=== PATIENT | male | born 1955 | race Caucasian/White ===

== ENCOUNTER → 2016-05-20 | Outpatient (CLI) | payer BC, OTHER ==
[~2016-05-20] VITALS: Ht 177.8 cm; Wt 113.4 kg
[~2016-05-20] MED LIST: ACET-700; ASPI1TAB PO; ASPI325T PO; ATOR40TA PO; CETI10TA PO; DIGI1TAB3 PO; DIGO0.2556 IV; ELIQ5TAB PO; FLEC1TAB PO; GLIP10TA6 PO; GLIP5TAB8 PO; INVO300T PO; JANU50TA25 PO; LIDOCAINE 2% INJ 100 MG/5 ML SDV (FOR ANES.) As Ordered ONE; LISI-538 PO; METF500T PO; NS 1,000 ML IV SCH; OMEP10CASR PO; PROPOFOL 500 MG/50 ML VIAL As Ordered ONE; TAMBOCAR PO; TENO1TAB4 PO; TYLE167L PO
--- NOTE | 2016-05-20 11:32 | ROOR ---
Patient Name: Kelby Waldrop Procedure Date: 05/20/2016 11:16 AM Date of : 1955 Age: 61 Room: [facility] Gender: Male Note Status: Finalized Procedure: Upper GI endoscopy Indications: Follow-up of esophageal reflux Providers: Sidney Raines Jr, MD Referring MD: Regulo Miller MD Requesting Provider: Medicines: Propofol per Anesthesia Complications: No immediate complications. Procedure: Pre-Anesthesia Assessment: - Prior to the procedure, a History and Physical was performed, and patient medications and allergies were reviewed. The patient is competent. The risks and benefits of the procedure and the sedation options and risks were discussed with the patient. All questions were answered and informed consent was obtained. Patient identification and proposed procedure were verified by the physician and the nurse in the pre-procedure area and in the procedure room. Mental Status Examination: alert and oriented. Airway Examination: normal oropharyngeal airway and neck mobility. Respiratory Examination: clear to auscultation. CV Examination: normal. ASA Grade Assessment: II - A patient with mild systemic disease. After reviewing the risks and benefits, the patient was deemed in satisfactory condition to undergo the procedure. The anesthesia plan was to use moderate sedation / analgesia (conscious sedation). Immediately prior to administration of medications, the patient was re-assessed for adequacy to receive sedatives. The heart rate, respiratory rate, oxygen saturations, blood pressure, adequacy of pulmonary ventilation, and response to care were monitored throughout the procedure. The physical status of the patient was re-assessed after the procedure. The Endoscope was introduced through the mouth, and advanced to the second part of duodenum. The patient tolerated the procedure well. The upper GI endoscopy was accomplished without difficulty. Findings: The upper third of the esophagus, middle third of the esophagus and lower third of the esophagus were normal. A small hiatal hernia was present. The duodenal bulb, first portion of the duodenum and second portion of the duodenum were normal. Mild inflammation characterized by congestion (edema), erythema and granularity was found in the gastric antrum and in the prepyloric region of the stomach. Impression: - Normal upper third of esophagus, middle third of esophagus and lower third of esophagus. - Small hiatal hernia. - Normal duodenal bulb, first portion of the duodenum and second portion of the duodenum. - Gastritis. - No specimens collected. Recommendation: - Discharge patient to home (ambulatory). Sidney Raines MD Sidney Raines Jr, MD 05/20/2016 11:32:05 AM This report has been signed electronically. Number of Addenda: 0 Note Initiated On: 05/20/2016 11:16 AM Estimated Blood Loss: Estimated blood loss: none.
--- NOTE | 2016-05-20 11:44 | ROOR ---
Patient Name: Kelby Waldrop Procedure Date: 05/20/2016 11:17 AM Date of : 1955 Age: 61 Room: [facility] Gender: Male Note Status: Finalized Procedure: Colonoscopy Indications: Screening for colorectal malignant neoplasm Providers: Sidney Raines Jr, MD Referring MD: Regulo Miller MD Requesting Provider: Medicines: Propofol per Anesthesia Complications: No immediate complications. Procedure: Pre-Anesthesia Assessment: - Prior to the procedure, a History and Physical was performed, and patient medications and allergies were reviewed. The patient is competent. The risks and benefits of the procedure and the sedation options and risks were discussed with the patient. All questions were answered and informed consent was obtained. Patient identification and proposed procedure were verified by the physician and the nurse in the pre-procedure area and in the procedure room. Mental Status Examination: alert and oriented. Airway Examination: normal oropharyngeal airway and neck mobility. Respiratory Examination: clear to auscultation. CV Examination: normal. ASA Grade Assessment: II - A patient with mild systemic disease. After reviewing the risks and benefits, the patient was deemed in satisfactory condition to undergo the procedure. The anesthesia plan was to use moderate sedation / analgesia (conscious sedation). Immediately prior to administration of medications, the patient was re-assessed for adequacy to receive sedatives. The heart rate, respiratory rate, oxygen saturations, blood pressure, adequacy of pulmonary ventilation, and response to care were monitored throughout the procedure. The physical status of the patient was re-assessed after the procedure. The Colonoscope was introduced through the anus and advanced to the cecum, identified by appendiceal orifice and ileocecal valve. The colonoscopy was performed without difficulty. The patient tolerated the procedure well. The bowel preparation used was SUPREP. The quality of the bowel preparation was adequate and good. Findings: The perianal and digital rectal examinations were normal. Pertinent negatives include normal sphincter tone, no palpable rectal lesions and no anal lesion or abnormality was detected. A diminutive polyp was found in the rectum. The polyp was removed with a jumbo cold forceps. Resection and retrieval were complete. The recto-sigmoid colon, sigmoid colon, descending colon, transverse colon, ascending colon, cecum, appendiceal orifice and ileocecal valve appeared normal. Impression: - One diminutive polyp in the rectum, removed with a jumbo cold forceps. Resected and retrieved. - The recto-sigmoid colon, sigmoid colon, descending colon, transverse colon, ascending colon, cecum, appendiceal orifice and ileocecal valve are normal. Recommendation: - Discharge patient to home (ambulatory). - Repeat colonoscopy in 5-10 years for surveillance based on pathology results. Sidney Raines MD Sidney Raines Jr, MD 05/20/2016 11:44:19 AM This report has been signed electronically. Number of Addenda: 0 Note Initiated On: 05/20/2016 11:17 AM Estimated Blood Loss: Estimated blood loss: none.
[2016-05-20 12:00] VITALS: BP 124/69
== END | disposition home or self-care (01) ==
LOC: M OPP 10:45
PROVIDERS: ATTEND Surgery
DX: Z12.11 Encounter for screening for malignant neoplasm of colon (principal); D12.8 Benign neoplasm of rectum; K21.9 Gastro-esophageal reflux disease without esophagitis; K29.70 Gastritis, unspecified, without bleeding; K44.9 Diaphragmatic hernia without obstruction or gangrene; I10 Essential (primary) hypertension; E11.9 Type 2 diabetes mellitus without complications; I25.10 Atherosclerotic heart disease of native coronary artery without angina pectoris; I48.91 Unspecified atrial fibrillation; E78.00 Pure hypercholesterolemia, unspecified; E66.9 Obesity, unspecified; Z87.891 Personal history of nicotine dependence; Z95.0 Presence of cardiac pacemaker; R06.83 Snoring; Z57.8 Occupational exposure to other risk factors; Z79.82 Long term (current) use of aspirin; Z79.84 Long term (current) use of oral hypoglycemic drugs; Z79.899 Other long term (current) drug therapy

== ENCOUNTER → 2017-11-14 | Outpatient (CLI) | payer BC, OTHER | LOC: M RAD 12:57 | DX: H90.42 Sensorineural hearing loss, unilateral, left ear, with unrestricted hearing on the contralateral side (principal) | CPT/HCPCS: 70480 ==

== ENCOUNTER → 2017-11-14 | Outpatient (CLI) | payer BC, OTHER ==
[2017-11-14 13:41] LABS: ANION GAP 9 MEQ/L (8-16); BLOOD UREA NITROGEN 20 MG/DL (7-18); CALCIUM LEVEL 9.2 MG/DL (8.8-10.2); CARBON DIOXIDE LEVEL 26 MEQ/L (21-32); CHLORIDE LEVEL 104 MEQ/L (98-107); CREATININE FOR GFR 0.89 MG/DL (0.70-1.30); GLOMERULAR FILTRATION RATE > 60.0 (>49); GLUCOSE, FASTING 168 MG/DL (70-100); POTASSIUM SERUM 4.3 MEQ/L (3.5-5.1); SODIUM LEVEL 139 MEQ/L (136-145)
== END ==
LOC: M LAB 12:44
DX: I48.91 Unspecified atrial fibrillation (principal)

== ENCOUNTER → 2018-06-05 | Outpatient (CLI) | payer BC, OTHER ==
[~2018-06-05] MED LIST changes: -ATOR40TA PO; +ATOR40TA75 PO; -LIDOCAINE 2% INJ 100 MG/5 ML SDV (FOR ANES.) As Ordered ONE; -METF500T PO; +METF500T13 PO; -NS 1,000 ML IV SCH; -PROPOFOL 500 MG/50 ML VIAL As Ordered ONE
[2018-06-05 08:37] LABS: BASO % 0.6 % (0.0-1.0); EOS # 0.2 10^3/uL (0.0-0.50); EOS % 3.6 % (0.0-3.0); HEMATOCRIT 41.9 % (42.0-52.0); HEMOGLOBIN 13.8 g/dl (13.5-17.5); LYMPH % 31.8 % (24.0-44.0); MEAN CORPUSCULAR HGB CONC 32.9 g/dl (32.0-36.5); MEAN CORPUSCULAR VOLUME 91.1 fl (80.0-96.0); MONO # 0.6 10^3/uL (0.0-0.8); MONO % 8.7 % (0.0-5.0); NEUTROPHILS # 3.5 10^3/uL (1.8-7.7); PLATELET COUNT, AUTOMATED 171 10^3/uL (150-450); WHITE BLOOD COUNT 6.4 10^3/uL (4.0-10.0)
[2018-06-05 09:03] LABS: ALBUMIN 3.8 GM/DL (3.2-5.2); ALT/SGPT 32 U/L (12-78); BILIRUBIN,TOTAL 0.4 MG/DL (0.2-1.0); BLOOD UREA NITROGEN 13 MG/DL (7-18); CALCIUM LEVEL 8.7 MG/DL (8.8-10.2); CARBON DIOXIDE LEVEL 30 MEQ/L (21-32); CHLORIDE LEVEL 107 MEQ/L (98-107); CHOLESTEROL LEVEL 124 MG/DL (<200); CHOLESTEROL RISK RATIO 3.351 (<5); CREATININE FOR GFR 0.72 MG/DL (0.70-1.30); GLOMERULAR FILTRATION RATE > 60.0 (>49); GLUCOSE, FASTING 184 MG/DL (70-100); HDL CHOLESTEROL 37 MG/DL (>40); LDL CHOLESTEROL 73 MG/DL (<100); NON-HDL-C 87 MG/DL; POTASSIUM SERUM 4.4 MEQ/L (3.5-5.1); SODIUM LEVEL 142 MEQ/L (136-145); TOTAL PROTEIN 7.6 GM/DL (6.4-8.2); TRIGLYCERIDES LEVEL 72 MG/DL (<150)
[2018-06-05 12:42] LABS: HEMOGLOBIN A1c 7.9 %
[2018-06-05 16:05] LABS: CREATININE, URINE 32.8 MG/DL; CREATININE,RANDOM URINE 32.8 MG/DL; MALB URINE SIEMENS 6.2 MG/L; MAU/CREAT RATIO 18.9 MCG/MG (0.0-30.0)
== END ==
LOC: M LAB 07:56
PROVIDERS: ATTEND Family Medicine
DX: E11.9 Type 2 diabetes mellitus without complications (principal)

== ENCOUNTER → 2019-05-09 | Outpatient (CLI) | payer BC, OTHER ==
[~2019-05-09] MED LIST changes: +ASPI-1 PO; -ASPI1TAB PO; -ASPI325T PO; +ASPI81TA26 PO
[2019-05-09 07:02] LABS: HEMATOCRIT 43.4 % (42.0-52.0); HEMOGLOBIN 14.3 g/dl (13.5-17.5); MEAN CORPUSCULAR HEMOGLOBIN 30.2 pg (27.0-33.0); MEAN CORPUSCULAR HGB CONC 32.9 g/dl (32.0-36.5); MEAN CORPUSCULAR VOLUME 91.8 fl (80.0-96.0); PLATELET COUNT, AUTOMATED 149 10^3/uL (150-450); RED BLOOD COUNT 4.73 10^6/uL (4.30-6.10); WHITE BLOOD COUNT 6.9 10^3/uL (4.0-10.0)
[2019-05-09 07:38] LABS: ALT/SGPT 38 U/L (12-78); BILIRUBIN,TOTAL 0.5 MG/DL (0.2-1.0); BLOOD UREA NITROGEN 11 MG/DL (7-18); CALCIUM LEVEL 9.7 MG/DL (8.8-10.2); CARBON DIOXIDE LEVEL 29 MEQ/L (21-32); CHLORIDE LEVEL 106 MEQ/L (98-107); CHOLESTEROL LEVEL 130 MG/DL (<200); CHOLESTEROL RISK RATIO 3.421 (<5); CREATININE FOR GFR 0.75 MG/DL (0.70-1.30); GLOMERULAR FILTRATION RATE > 60.0 (>49); GLUCOSE, FASTING 118 MG/DL (70-100); HDL CHOLESTEROL 38 MG/DL (>40); LDL CHOLESTEROL 75 MG/DL (<100); MAGNESIUM LEVEL 1.8 MG/DL (1.8-2.4); NON-HDL-C 92 MG/DL; POTASSIUM SERUM 3.9 MEQ/L (3.5-5.1); SODIUM LEVEL 142 MEQ/L (136-145); TOTAL PROTEIN 7.6 GM/DL (6.4-8.2); TRIGLYCERIDES LEVEL 86 MG/DL (<150)
== END ==
LOC: M LAB 06:05
PROVIDERS: ATTEND Physician Assistant
DX: I48.0 Paroxysmal atrial fibrillation (principal); I11.9 Hypertensive heart disease without heart failure; E78.00 Pure hypercholesterolemia, unspecified

== ENCOUNTER → 2020-05-22 | Outpatient (CLI) | payer BC, OTHER ==
[~2020-05-22] MED LIST changes: -LISI-538 PO; +LISI20TA33 PO
[2020-05-22 06:58] LABS: HEMATOCRIT 42.7 % (42.0-52.0); HEMOGLOBIN 13.9 g/dl (13.5-17.5); MEAN CORPUSCULAR HEMOGLOBIN 29.7 pg (27.0-33.0); MEAN CORPUSCULAR HGB CONC 32.6 g/dl (32.0-36.5); MEAN CORPUSCULAR VOLUME 91.2 fl (80.0-96.0); PLATELET COUNT, AUTOMATED 159 10^3/uL (150-450); RED BLOOD COUNT 4.68 10^6/uL (4.30-6.10); WHITE BLOOD COUNT 6.8 10^3/uL (4.0-10.0)
[2020-05-22 07:25] LABS: ALBUMIN 3.8 GM/DL (3.2-5.2); ALT/SGPT 36 U/L (12-78); BILIRUBIN,TOTAL 0.6 MG/DL (0.2-1.0); BLOOD UREA NITROGEN 13 MG/DL (7-18); CALCIUM LEVEL 8.8 MG/DL (8.8-10.2); CARBON DIOXIDE LEVEL 27 MEQ/L (21-32); CHLORIDE LEVEL 107 MEQ/L (98-107); CHOLESTEROL LEVEL 131 MG/DL (<200); CHOLESTEROL RISK RATIO 3.275 (<5); CREATININE FOR GFR 0.71 MG/DL (0.70-1.30); GLOMERULAR FILTRATION RATE > 60.0 (>49); GLUCOSE, FASTING 157 MG/DL (70-100); HDL CHOLESTEROL 40 MG/DL (>40); LDL CHOLESTEROL 76 MG/DL (<100); NON-HDL-C 91 MG/DL; POTASSIUM SERUM 4.1 MEQ/L (3.5-5.1); SODIUM LEVEL 140 MEQ/L (136-145); TOTAL PROTEIN 7.5 GM/DL (6.4-8.2); TRIGLYCERIDES LEVEL 74 MG/DL (<150)
[2020-05-22 09:17] LABS: HEMOGLOBIN A1c 7.6 %
== END ==
LOC: M LAB 06:18
PROVIDERS: ATTEND Family Medicine
DX: E11.9 Type 2 diabetes mellitus without complications (principal)

== ENCOUNTER → 2020-10-08 | Outpatient (CLI) | payer BC, OTHER ==
[2020-10-08 07:08] LABS: BASO % 0.4 % (0.0-1.0); EOS # 0.4 10^3/uL (0.0-0.5); EOS % 4.2 % (0.0-3.0); HEMATOCRIT 44.1 % (42.0-52.0); HEMOGLOBIN 14.3 g/dl (13.5-17.5); MEAN CORPUSCULAR HEMOGLOBIN 29.7 pg (27.0-33.0); MEAN CORPUSCULAR HGB CONC 32.4 g/dl (32.0-36.5); MEAN CORPUSCULAR VOLUME 91.5 fl (80.0-96.0); MONO # 0.7 10^3/uL (0.0-0.8); MONO % 7.7 % (2.0-8.0); NEUTROPHILS # 5.5 10^3/uL (1.5-8.5); NEUTROPHILS % 64.5 % (36.0-66.0); PLATELET COUNT, AUTOMATED 163 10^3/uL (150-450); RED BLOOD COUNT 4.82 10^6/uL (4.30-6.10); WHITE BLOOD COUNT 8.5 10^3/uL (4.0-10.0)
[2020-10-08 07:46] LABS: ALBUMIN 3.8 GM/DL (3.2-5.2); ALT/SGPT 34 U/L (12-78); BILIRUBIN,TOTAL 0.4 MG/DL (0.2-1.0); BLOOD UREA NITROGEN 16 MG/DL (7-18); CALCIUM LEVEL 8.9 MG/DL (8.8-10.2); CARBON DIOXIDE LEVEL 27 MEQ/L (21-32); CHLORIDE LEVEL 108 MEQ/L (98-107); CREATININE FOR GFR 0.63 MG/DL (0.70-1.30); GLOMERULAR FILTRATION RATE > 60.0 (>49); GLUCOSE, FASTING 197 MG/DL (70-100); PROSTATIC SPECIFIC AG MONITOR 0.55 NG/ML (< 4.00); SODIUM LEVEL 141 MEQ/L (136-145); TOTAL PROTEIN 7.6 GM/DL (6.4-8.2)
[2020-10-08 07:55] LABS: HEMOGLOBIN A1c 7.4 %
== END ==
LOC: M LAB 06:25
PROVIDERS: ATTEND Family Medicine
DX: Z12.5 Encounter for screening for malignant neoplasm of prostate (principal)

== ENCOUNTER → 2021-04-28 | Outpatient (CLI) | payer OTHER, BC | LOC: M LAB 15:35 | PROVIDERS: ATTEND Psychiatry & Neurology Neurology | DX: I10 Essential (primary) hypertension (principal) ==

== ENCOUNTER → 2021-05-01 | Outpatient (CLI) | payer BC, OTHER ==
[~2021-05-01] MED LIST changes: +ISOVUE-370 76% 100ML VIAL As Ordered ONE
== END ==
LOC: M RAD 09:02
PROVIDERS: ATTEND Psychiatry & Neurology Neurology
DX: J01.90 Acute sinusitis, unspecified (principal); R42 Dizziness and giddiness
CPT/HCPCS: 70470; Q9967

== ENCOUNTER → 2021-09-21 | Outpatient (CLI) | payer BC, OTHER ==
[~2021-09-21] MED LIST changes: -ISOVUE-370 76% 100ML VIAL As Ordered ONE
== END ==
LOC: M RAD 06:53
PROVIDERS: ATTEND Family Medicine
DX: R10.11 Right upper quadrant pain (principal)

== ENCOUNTER 2022-01-14 19:31 | Emergency (ER) | payer BC, OTHER ==
[~2022-01-14] VITALS: Ht 177.8 cm; Wt 105.1 kg
[2022-01-14 20:05] LABS: BASO # 0.1 10^3/uL (0.0-0.2); BASO % 0.4 % (0.0-1.0); EOS # 0.1 10^3/uL (0.0-0.5); EOS % 0.8 % (0.0-3.0); HEMATOCRIT 40.9 % (42.0-52.0); HEMOGLOBIN 13.8 g/dl (13.5-17.5); LYMPH # 2.2 10^3/uL (1.5-5.0); LYMPH % 17.4 % (24.0-44.0); MEAN CORPUSCULAR HEMOGLOBIN 30.1 pg (27.0-33.0); MEAN CORPUSCULAR HGB CONC 33.7 g/dl (32.0-36.5); MEAN CORPUSCULAR VOLUME 89.1 fl (80.0-96.0); MONO # 0.6 10^3/uL (0.0-0.8); MONO % 4.9 % (2.0-8.0); NEUTROPHILS # 9.4 10^3/uL (1.5-8.5); NEUTROPHILS % 76.3 % (36.0-66.0); PLATELET COUNT, AUTOMATED 145 10^3/uL (150-450); RED BLOOD COUNT 4.59 10^6/uL (4.30-6.10); WHITE BLOOD COUNT 12.4 10^3/uL (4.0-10.0)
[2022-01-14] MEDS ORDERED: KETOROLAC 30 MG/ML 1ML VIAL IV ONE (20:15)
[2022-01-14 20:19] LABS: INR 1.15; PARTIAL THROMBOPLASTIN TIME 27.9 SECONDS (24.8-34.2); PROTHROMBIN TIME 14.9 SECONDS (12.5-14.5)
[2022-01-14 20:31] LABS: ALBUMIN 3.9 GM/DL (3.2-5.2); ALT/SGPT 32 U/L (12-78); BILIRUBIN,DIRECT 0.4 MG/DL (0.0-0.2); BILIRUBIN,TOTAL 0.9 MG/DL (0.2-1.0); BLOOD UREA NITROGEN 14 MG/DL (7-18); CARBON DIOXIDE LEVEL 23 MEQ/L (21-32); CHLORIDE LEVEL 107 MEQ/L (98-107); CK-MB VALUE MASS < 1.0 NG/ML (<3.6); CPK CREATINE PHOSPHOKINASE 70 U/L (39-308); CREATININE FOR GFR 0.75 MG/DL (0.70-1.30); GLOMERULAR FILTRATION RATE > 60.0 (>49); GLUCOSE, FASTING 172 MG/DL (70-100); LIPASE 195 U/L (73-393); MB/CK RELATIVE INDEX 1.43 (< OR =4); NT-PRO BNP 171 PG/ML (<125); POTASSIUM SERUM 3.6 MEQ/L (3.5-5.1); SODIUM LEVEL 138 MEQ/L (136-145)
[2022-01-14 21:51] LABS: CK-MB VALUE MASS < 1.0 NG/ML (<3.6); CPK CREATINE PHOSPHOKINASE 30 U/L (39-308); MB/CK RELATIVE INDEX 3.33 (< OR =4)
[2022-01-14] MEDS ORDERED: KETO10TAB PO (22:46)
[2022-01-14 23:26] VITALS: BP 137/64
== END 2022-01-14 23:38 | disposition home or self-care (01) ==
LOC: M ED 19:31
DX: R07.9 Chest pain, unspecified (principal); I25.2 Old myocardial infarction; E11.9 Type 2 diabetes mellitus without complications; I10 Essential (primary) hypertension; K21.9 Gastro-esophageal reflux disease without esophagitis; Z86.79 Personal history of other diseases of the circulatory system; Z87.891 Personal history of nicotine dependence; Z79.01 Long term (current) use of anticoagulants; Z79.82 Long term (current) use of aspirin; Z79.811 Long term (current) use of aromatase inhibitors; Z79.4 Long term (current) use of insulin; Z79.899 Other long term (current) drug therapy
CPT/HCPCS: 71045; 80047; 80048; 80076; 82550; 82553; 83690; 83880; 84443; 84484; 85025; 85610; 85730; 93005; 93041; 94760; 96374; 99285; J1885

== ENCOUNTER → 2022-01-22 | Outpatient (CLI) | payer BC, OTHER ==
[~2022-01-22] MED LIST changes: +KETO10TAB PO
[2022-01-22 08:40] LABS: HEMATOCRIT 39.4 % (42.0-52.0); HEMOGLOBIN 12.8 g/dl (13.5-17.5); MEAN CORPUSCULAR HEMOGLOBIN 29.8 pg (27.0-33.0); MEAN CORPUSCULAR HGB CONC 32.5 g/dl (32.0-36.5); MEAN CORPUSCULAR VOLUME 91.6 fl (80.0-96.0); PLATELET COUNT, AUTOMATED 171 10^3/uL (150-450); WHITE BLOOD COUNT 6.9 10^3/uL (4.0-10.0)
[2022-01-22 09:40] LABS: ALBUMIN 3.4 GM/DL (3.2-5.2); ALT/SGPT 29 U/L (12-78); BILIRUBIN,TOTAL 0.4 MG/DL (0.2-1.0); BLOOD UREA NITROGEN 7 MG/DL (7-18); CALCIUM LEVEL 8.9 MG/DL (8.8-10.2); CARBON DIOXIDE LEVEL 29 MEQ/L (21-32); CHLORIDE LEVEL 108 MEQ/L (98-107); CHOLESTEROL LEVEL 101 MG/DL (<200); CREATININE FOR GFR 0.67 MG/DL (0.70-1.30); GLOMERULAR FILTRATION RATE > 60.0 (>49); GLUCOSE, FASTING 140 MG/DL (70-100); HDL CHOLESTEROL 34 MG/DL (>40); LDL CHOLESTEROL 52 MG/DL (<100); MAGNESIUM LEVEL 1.8 MG/DL (1.8-2.4); NON-HDL-C 67 MG/DL; POTASSIUM SERUM 3.7 MEQ/L (3.5-5.1); SODIUM LEVEL 141 MEQ/L (136-145); TOTAL PROTEIN 7.4 GM/DL (6.4-8.2); TRIGLYCERIDES LEVEL 75 MG/DL (<150)
== END ==
LOC: M LAB 06:52
PROVIDERS: ATTEND Physician Assistant
DX: I48.0 Paroxysmal atrial fibrillation (principal); Z79.01 Long term (current) use of anticoagulants

== ENCOUNTER → 2022-08-31 | Outpatient (CLI) | payer MEDICARE, BC, OTHER | LOC: M LAB 07:05 | PROVIDERS: ATTEND Family Medicine | DX: I48.0 Paroxysmal atrial fibrillation (principal); I50.32 Chronic diastolic (congestive) heart failure; Z12.5 Encounter for screening for malignant neoplasm of prostate ==

== ENCOUNTER → 2022-08-31 | Outpatient (CLI) | payer MEDICARE, BC, OTHER ==
[2022-08-31 07:58] LABS: HEMATOCRIT 42.6 % (42.0-52.0); HEMOGLOBIN 14.1 g/dl (13.5-17.5); MEAN CORPUSCULAR HEMOGLOBIN 29.9 pg (27.0-33.0); MEAN CORPUSCULAR HGB CONC 33.1 g/dl (32.0-36.5); MEAN CORPUSCULAR VOLUME 90.3 fl (80.0-96.0); PLATELET COUNT, AUTOMATED 156 10^3/uL (150-450); RED BLOOD COUNT 4.72 10^6/uL (4.30-6.10); WHITE BLOOD COUNT 7.9 10^3/uL (4.0-10.0)
[2022-08-31 08:26] LABS: BLOOD UREA NITROGEN 18 MG/DL (9-23); CALCIUM LEVEL 9.6 MG/DL (8.3-10.6); CARBON DIOXIDE LEVEL 27 MMOL/L (20-31); CHLORIDE LEVEL 104 MMOL/L (98-107); CREATININE FOR GFR 0.65 MG/DL (0.70-1.30); GLOMERULAR FILTRATION RATE > 60.0 (>49); GLUCOSE, FASTING 291 MG/DL (74-106); MAGNESIUM LEVEL 1.5 MG/DL (1.8-2.4); POTASSIUM SERUM 4.5 MMOL/L (3.5-5.1); SODIUM LEVEL 137 MMOL/L (136-145)
== END ==
LOC: M LAB 07:03
PROVIDERS: ATTEND Physician Assistant
DX: I48.0 Paroxysmal atrial fibrillation (principal); I50.32 Chronic diastolic (congestive) heart failure

== ENCOUNTER → 2023-01-06 | Outpatient (CLI) | payer MEDICARE, BC, OTHER ==
[~2023-01-06] MED LIST changes: +GLIP5TAB17 PO; -GLIP5TAB8 PO
[2023-01-06 08:26] LABS: HEMATOCRIT 41.4 % (42.0-52.0); HEMOGLOBIN 13.8 g/dl (13.5-17.5); MEAN CORPUSCULAR HEMOGLOBIN 30.2 pg (27.0-33.0); MEAN CORPUSCULAR HGB CONC 33.3 g/dl (32.0-36.5); MEAN CORPUSCULAR VOLUME 90.6 fl (80.0-96.0); PLATELET COUNT, AUTOMATED 159 10^3/uL (150-450); RED BLOOD COUNT 4.57 10^6/uL (4.30-6.10); WHITE BLOOD COUNT 7.1 10^3/uL (4.0-10.0)
[2023-01-06 09:08] LABS: ALBUMIN 3.8 G/DL (3.2-5.2); ALKALINE PHOSPHATASE 67 U/L (46-116); ALT/SGPT 38 U/L (7.0-40); AST/SGOT 28 U/L (<34); BILIRUBIN,TOTAL 0.7 MG/DL (0.3-1.2); BLOOD UREA NITROGEN 14 MG/DL (9-23); CALCIUM LEVEL 9.4 MG/DL (8.3-10.6); CARBON DIOXIDE LEVEL 28 MMOL/L (20-31); CHLORIDE LEVEL 104 MMOL/L (98-107); CHOLESTEROL LEVEL 119 MG/DL (<200); CHOLESTEROL RISK RATIO 4.08 (<5); CREATININE FOR GFR 0.67 MG/DL (0.70-1.30); GLOMERULAR FILTRATION RATE > 60.0 (>49); GLUCOSE, FASTING 262 MG/DL (74-106); HDL CHOLESTEROL 29.1 MG/DL (>40); LDL CHOLESTEROL 58.3 MG/DL (<100); MAGNESIUM LEVEL 1.5 MG/DL (1.8-2.4); NON-HDL-C 89.9 MG/DL; POTASSIUM SERUM 4.4 MMOL/L (3.5-5.1); SODIUM LEVEL 140 MMOL/L (136-145); TOTAL PROTEIN 7.4 G/DL (5.7-8.2); TRIGLYCERIDES LEVEL 158 MG/DL (<150)
== END ==
LOC: M LAB 07:30
PROVIDERS: ATTEND Physician Assistant
DX: I48.0 Paroxysmal atrial fibrillation (principal); E78.00 Pure hypercholesterolemia, unspecified; I50.32 Chronic diastolic (congestive) heart failure

== ENCOUNTER 2023-07-14 09:28 | Day surgery (SDC) | payer MEDICARE, BC ==
[~2023-07-14] VITALS: Ht 177.8 cm; Wt 103.0 kg
[~2023-07-14 09:28] MED LIST changes: +VITA500C19 PO; +XARE10TA PO
[2023-07-14] MEDS: NS 1,000 ML IV ONE (09:53)
[2023-07-14] MEDS ORDERED: fentaNYL 100 MCG/2 ML INJECTION As Ordered ONE (10:15)
[2023-07-14] MEDS ORDERED: propofoL 200 MG/20 ML VIAL As Ordered ONE (10:15)
[2023-07-14] MEDS ORDERED: LIDOCAINE 2% 100MG/5ML SDV (FOR ANES.) As Ordered ONE (10:15)
[2023-07-14 10:48] VITALS: TEMP 98.5
[2023-07-14 11:05] VITALS: BP 128/62; O2SAT 95
== END 2023-07-14 11:16 | disposition home or self-care (01) ==
LOC: M OPP 09:28
PROVIDERS: ATTEND Surgery
DX: Z12.11 Encounter for screening for malignant neoplasm of colon (principal); Z86.010 Personal history of colon polyps; K57.30 Diverticulosis of large intestine without perforation or abscess without bleeding; K31.89 Other diseases of stomach and duodenum; K29.70 Gastritis, unspecified, without bleeding; I48.91 Unspecified atrial fibrillation; I50.9 Heart failure, unspecified; E11.9 Type 2 diabetes mellitus without complications; Z79.01 Long term (current) use of anticoagulants; Z79.2 Long term (current) use of antibiotics; Z79.84 Long term (current) use of oral hypoglycemic drugs; Z79.899 Other long term (current) drug therapy; Z87.891 Personal history of nicotine dependence
CPT/HCPCS: 43239; 88305; G0105; J3010

== ENCOUNTER → 2023-12-16 | Outpatient (CLI) | payer MEDICARE, BC ==
[2023-12-16 07:58] LABS: BASO % 0.4 % (0.0-1.0); EOS # 0.3 10^3/uL (0.0-0.5); EOS % 4.6 % (0.0-3.0); HEMATOCRIT 41.6 % (42.0-52.0); HEMOGLOBIN 14.2 g/dl (13.5-17.5); LYMPH # 2.1 10^3/uL (1.5-5.0); LYMPH % 28.4 % (24.0-44.0); MEAN CORPUSCULAR HEMOGLOBIN 30.7 pg (27.0-33.0); MEAN CORPUSCULAR HGB CONC 34.1 g/dl (32.0-36.5); MONO # 0.5 10^3/uL (0.0-0.8); MONO % 7.2 % (2.0-8.0); NEUTROPHILS # 4.3 10^3/uL (1.5-8.5); NEUTROPHILS % 59.1 % (36.0-66.0); PLATELET COUNT, AUTOMATED 139 10^3/uL (150-450); RED BLOOD COUNT 4.62 10^6/uL (4.30-6.10); WHITE BLOOD COUNT 7.3 10^3/uL (4.0-10.0)
[2023-12-16 08:26] LABS: CREATININE, URINE 116.9 MG/DL
[2023-12-16 08:27] LABS: ALKALINE PHOSPHATASE 75 U/L (46-116); ALT/SGPT 41 U/L (7.0-40); AST/SGOT 22 U/L (<34); BILIRUBIN,TOTAL 0.7 MG/DL (0.3-1.2); BLOOD UREA NITROGEN 16 MG/DL (9-23); CALCIUM LEVEL 9.6 MG/DL (8.3-10.6); CARBON DIOXIDE LEVEL 26 MMOL/L (20-31); CHLORIDE LEVEL 105 MMOL/L (98-107); CHOLESTEROL LEVEL 126 MG/DL (<200); CHOLESTEROL RISK RATIO 4.64 (<5); CREATININE FOR GFR 0.63 MG/DL (0.70-1.30); GLOMERULAR FILTRATION RATE > 60.0 (>49); GLUCOSE, FASTING 229 MG/DL (74-106); HDL CHOLESTEROL 27.1 MG/DL (>40); LDL CHOLESTEROL 66.3 MG/DL (<100); NON-HDL-C 98.9 MG/DL; POTASSIUM SERUM 4.4 MMOL/L (3.5-5.1); SODIUM LEVEL 138 MMOL/L (136-145); TOTAL PROTEIN 7.5 G/DL (5.7-8.2); TRIGLYCERIDES LEVEL 163 MG/DL (<150)
[2023-12-16 08:28] LABS: HEMOGLOBIN A1c 9.8 % (4.0-6.0)
== END ==
LOC: M LAB 07:11
PROVIDERS: ATTEND Family Medicine
DX: E11.69 Type 2 diabetes mellitus with other specified complication (principal)

== ENCOUNTER → 2024-10-12 | Outpatient (CLI) | payer MEDICARE, BC ==
[~2024-10-12] MED LIST changes: +GLIP10TA15 PO; -GLIP10TA6 PO; -VITA500C19 PO; +VITA500C22 PO
[2024-10-12 07:58] LABS: BASO # 0.0 10^3/uL (0.0-0.2); BASO % 0.5 % (0.0-1.0); EOS # 0.3 10^3/uL (0.0-0.5); EOS % 3.7 % (0.0-3.0); LYMPH # 1.8 10^3/uL (1.5-5.0); LYMPH % 24.6 % (24.0-44.0); MONO # 0.6 10^3/uL (0.0-0.8); MONO % 7.5 % (2.0-8.0); NEUTROPHILS # 4.7 10^3/uL (1.5-8.5); NEUTROPHILS % 63.4 % (36.0-66.0); PLATELET COUNT, AUTOMATED 162 10^3/uL (150-450)
[2024-10-12 08:11] LABS: ESTIMATED AVERAGE GLUCOSE 194.0 MG/DL (60-110)
[2024-10-12 08:25] LABS: CREATININE, URINE 166.5 MG/DL; MALB URINE SIEMENS 145.0 MG/L; MAU/CREAT RATIO 87.0 MCG/MG (0.0-30.0)
[2024-10-12 08:26] LABS: ALT/SGPT 28 U/L (7.0-40); AST/SGOT 22 U/L (<34); CALCIUM LEVEL 9.1 MG/DL (8.3-10.6); CARBON DIOXIDE LEVEL 27 MMOL/L (20-31); CHLORIDE LEVEL 103 MMOL/L (98-107); CHOLESTEROL LEVEL 116 MG/DL (<200); CHOLESTEROL RISK RATIO 4.32 (<5); CREATININE FOR GFR 0.66 MG/DL (0.70-1.30); GLOMERULAR FILTRATION RATE > 90.0 (>49); LDL CHOLESTEROL 65.8 MG/DL (<100); NON-HDL-C 89.2 MG/DL; POTASSIUM SERUM 4.1 MMOL/L (3.5-5.1); SODIUM LEVEL 143 MMOL/L (136-145); TRIGLYCERIDES LEVEL 117 MG/DL (<150)
== END ==
LOC: M LAB 06:50
PROVIDERS: ATTEND Family Medicine
DX: E11.69 Type 2 diabetes mellitus with other specified complication (principal)